=== PATIENT | male | born 2000 | race Caucasian/White ===

== ENCOUNTER 2023-01-16 00:44 | Emergency (ER) | payer SELFPAY ==
[~2023-01-16] VITALS: Ht 172.7 cm; Wt 83.9 kg
[2023-01-16] MEDS ORDERED: IBUPROFEN 200 MG TABLET ONE (01:13)
[2023-01-16] MEDS ORDERED: IBUPROFEN 600 MG TABLET ONE (01:13)
[2023-01-16] MEDS ORDERED: IBUPROFEN 400 MG TABLET PO ONE (01:30)
[2023-01-16 02:37] VITALS: BP 140/85; TEMP 98.1; O2SAT 98
== END 2023-01-16 02:35 | disposition home or self-care (01) ==
LOC: ER 00:57
DX: S83.8X2A Sprain of other specified parts of left knee, initial encounter (principal); S93.491A Sprain of other ligament of right ankle, initial encounter; S39.012A Strain of muscle, fascia and tendon of lower back, initial encounter; V89.2XXA Person injured in unspecified motor-vehicle accident, traffic, initial encounter; Y93.89 Activity, other specified; Y92.89 Other specified places as the place of occurrence of the external cause; Y99.8 Other external cause status
CPT/HCPCS: 72131-TC; 73564-TC; 73610-TC